=== PATIENT | male | born 1935 | race Caucasian/White ===

== ENCOUNTER 2019-11-12 03:22 | Outpatient (CLI) | payer MEDICARE, SELFPAY ==
--- NOTE | 2019-11-12 11:50 | DI.MRI_ITS ---
EXAM: MR PELVIS WO CLINICAL HISTORY: PROSTATE CA,C61,S/P FIDUCIAL MARKER AND HYDROGEL PLACEMENT. TECHNIQUE: Multiplanar multisequence MRI was performed. COMPARISON: No exams were available for comparison FINDINGS: MR examination of pelvis was performed according to the usual protocol for pre therapy planning. Hyd ro gel insert is noted anterior to the rectum. IMPRESSION: DATA REPOSITORY:
== END 2019-11-12 03:42 ==
PROVIDERS: PCP Internal Medicine; Visit Provider Radiology Radiation Oncology
DX: C61 Malignant neoplasm of prostate (principal); Z51.0 Encounter for antineoplastic radiation therapy
CPT/HCPCS: 72195